=== PATIENT | female | born 1985 | race Caucasian/White ===

== ENCOUNTER 2022-06-18 11:55 | Inpatient (IN) | payer BC ==
[2022-06-18 13:32] VITALS: BMI 27.6
[2022-06-18] MEDS ORDERED: OXYTOCIN 30 UNITS in 0.9% NS 30 UNIT/500 ML INFUS.BAG IVPB ONE (13:46)
[2022-06-18] MEDS ORDERED: FENTANYL CITRATE/PF 50 MCG/ML VIAL ONE (13:57)
[2022-06-18] MEDS ORDERED: METOCLOPRAMIDE HCL INJECTION 10 MG/2 ML VIAL ONE (13:57)
[2022-06-18] MEDS ORDERED: ceFAZolin SODIUM 1 GM VIAL ONE (13:57)
[2022-06-18] MEDS ORDERED: DEXAMETHASONE SOD PHOSPHATE 4 MG/1 ML VIAL ONE (13:57)
[2022-06-18] MEDS ORDERED: morphine SULFATE (PF) 1 MG/2 ML SYRINGE ONE (13:57)
[2022-06-18] MEDS ORDERED: ONDANSETRON 4 MG/2 ML VIAL ONE (13:57)
[2022-06-18] MEDS ORDERED: CITRIC ACID/SODIUM CITRATE 30 ML UNIT-DOSE CUP PO ONE (13:59)
[2022-06-18] MEDS ORDERED: ELECTROLYTE-148 SOLN 500 ML IV ONE (13:59)
[2022-06-18] MEDS ORDERED: ELECTROLYTE-148 SOLN 1,000 ML IV SCH (14:00)
[2022-06-18] MEDS ORDERED: PHENYLEPHRINE HCL 10 MG/1 ML SINGLE DOSE VIAL ONE (14:15)
[2022-06-18] MEDS ORDERED: morphine SULFATE/PF 1 MG/2 ML (2cc Syringe - QUVA) IT ONE (14:15)
[2022-06-18] MEDS ORDERED: KETOROLAC TROMETHAMINE 30 MG/1 ML VIAL ONE (14:44)
[2022-06-18] MEDS: OXYTOCIN 20 UNITS in 0.9% NS 20 UNIT/1,000 ML INFUS.BAG IV SCH ×2 (15:15→23:34)
[2022-06-18] MEDS ORDERED: SIMETHICONE 80 MG TAB.CHEW (FP) PO PRN (15:16)
[2022-06-18] MEDS ORDERED: ACETAMINOPHEN 325 MG TABLET (FP) PO PRN (15:16)
[2022-06-18] MEDS ORDERED: METHYLERGONOVINE MALEATE 0.2 MG/1 ML AMP IM PRN (15:16)
[2022-06-18] MEDS ORDERED: IBUPROFEN 800 MG/8 ML IJ IVPB PRN (15:16)
[2022-06-18] MEDS ORDERED: SENNOSIDES/DOCUSATE COMBO (SENNA PLUS) TABLET (UD) PO PRN (15:16)
[2022-06-18] MEDS ORDERED: ONDANSETRON 4 MG/2 ML VIAL IVPUSH PRN (15:19)
[2022-06-18 22:57] VITALS: RESP 18
[2022-06-19] MEDS ORDERED: oxyCODONE HCL 5 MG TABLET PO PRN ×2 (03:16)
[2022-06-19 09:14] LABS: BASO % 0.3 % (0-2.0); EOS % 0.5 % (0-4.5); HEMATOCRIT 30.3 % (32.4-45.2); HEMOGLOBIN 10.2 GM/dL (10.7-15.3); LYMPH % 18.2 % (8-40); MCH 29.9 pg (25.7-33.7); MCHC 33.6 g/dl (32.0-36.0); MEAN CELL VOLUME 89.1 fl (80-96); MEAN PLT VOLUME 8.5 fl (7.5-11.1); MONO % 5.3 % (3.8-10.2); NEUT % 75.7 % (42.8-82.8); PLATELET COUNT 329 10^3/uL (134-434); RDW 13.6 % (11.6-15.6); WHITE BLOOD COUNT 14.2 K/mm3 (4.0-10.0)
[2022-06-19] MEDS: PRENATAL VITAMINS W/ FOLIC ACID TABLET (FP) PO SCH (11:13)
[2022-06-19] MEDS: METHIMAZOLE 5 MG TABLET PO SCH (11:13)
[2022-06-19] MEDS ORDERED: BISACODYL 10 MG SUPP.RECT RC PRN (15:16)
[2022-06-19] MEDS: OXYTOCIN 20 UNITS in 0.9% NS 20 UNIT/1,000 ML INFUS.BAG IV SCH (19:41)
[2022-06-19] MEDS: IBUPROFEN 600 MG TABLET (FP) PO PRN (20:49)
[2022-06-20] MEDS: IBUPROFEN 600 MG TABLET (FP) PO PRN (09:32)
[2022-06-20] MEDS: PRENATAL VITAMINS W/ FOLIC ACID TABLET (FP) PO SCH (09:32)
[2022-06-20 09:56] VITALS: BP 122/68; PULSE 103; TEMP 98.1
[2022-06-20] MEDS: METHIMAZOLE 5 MG TABLET PO SCH (11:00)
== END 2022-06-20 13:05 | disposition home or self-care (01) | DRG 785 ==
LOC: JLDR 11:55 → J3W 17:15
PROVIDERS: ADMIT Obstetrics & Gynecology; ATTEND Obstetrics & Gynecology
PROC: 10D00Z1 Extraction of Products of Conception, Low, Open Approach (ICD-10-PCS; principal; 2022-06-18)
PROC: 0UL70ZZ Occlusion of Bilateral Fallopian Tubes, Open Approach (ICD-10-PCS; 2022-06-18)
DX: O34.211 Maternal care for low transverse scar from previous cesarean delivery (principal); Z3A.39 39 weeks gestation of pregnancy; Z37.0 Single live birth; Z30.2 Encounter for sterilization
CPT/HCPCS: 36415; 85025; 88302-TC; 88307-TC